=== PATIENT | male | born 1970 | race Caucasian/White ===

== ENCOUNTER 2022-09-04 17:04 | Outpatient (REF) | payer BC, SELFPAY ==
[2022-09-04 21:41] LABS: ALT 35 U/L (16-63); AST 21 U/L (15-37); Albumin 4.3 g/dL (3.4-5.0); Alkaline Phosphatase 82 U/L (46-116); Anion Gap 8.8 mmol/L (3-11); BUN 20 mg/dL (7-18); Bilirubin, Total 0.6 mg/dL (0.2-1.0); CO2 30.2 mmol/L (21.0-32.0); CREATININE 1.4 mg/dL (0.70-1.30); Calculated LDL 212 mg/dL (<100); Chloride 104 mmol/L (98-107); Cholesterol 320 mg/dL (<200); Glucose 104 mg/dL (74-106); HDL Cholesterol 57 mg/dL (40-60); Sodium 143 mmol/L (136-145); Total Protein 7.5 g/dL (6.4-8.2); Triglyceride 259 mg/dL (<150)
[2022-09-04 22:39] LABS: Hemoglobin A1C 6.4 % (<5.7)
--- NOTE | 2022-09-08 16:30 | SKI_PTH ---
PATIENT: Clarence Morris LOC: [facility] U#:[id number] AGE/SX: 52/M ROOM: RE09/04/[address]: Ana Scott : 1970 BED: DIS: 09/04/2022 SPEC #: [id number] RECD: 09/08/22 17:33 STATUS: BOB REQ #: [id number] [place]: 09/08/22 16:[address]: Ana Scott DEPT: Surgical Specimen RECD BY: Milagro Rivas ENTERED: 09/08/22 17:34 SP TYPE: NORA SILVA DR: Unknown,Unknown Tissues: 1 - SKIN BIOPSY(SHAVE/PUNCH) Procedures: SKIN LEVEL 4 Comments: [id number]
== END 2022-09-04 17:05 | disposition home or self-care (01) ==
LOC: NCHCN 17:04
PROVIDERS: Visit Provider Family Medicine
DX: J39.2 Other diseases of pharynx (principal); Z12.11 Encounter for screening for malignant neoplasm of colon
CPT/HCPCS: 80053; 80061; 83036; 88305

== ENCOUNTER 2024-11-24 21:43 | Outpatient (REF) | payer BC, SELFPAY ==
[2024-11-24 22:12] LABS: ALT 40 U/L (16-63); AST 22 U/L (15-37); Albumin 4.2 g/dL (3.4-5.0); Alkaline Phosphatase 71 U/L (46-116); Anion Gap 9.3 mmol/L (3-11); BUN 19 mg/dL (7-18); Bilirubin, Total 0.7 mg/dL (0.2-1.0); CO2 26.7 mmol/L (21.0-32.0); CREATININE 1.1 mg/dL (0.70-1.30); Calcium 9.6 mg/dL (8.5-10.1); Calculated LDL 193 mg/dL (<100); Chloride 100 mmol/L (98-107); Cholesterol 312 mg/dL (<200); Estimated GFR 79.28 (mL/min/1.73m2); Glucose 97 mg/dL (74-106); HDL Cholesterol 56 mg/dL (>or=40); Sodium 136 mmol/L (136-145); Total Protein 7.3 g/dL (6.4-8.2); Triglyceride 318 mg/dL (<150)
== END 2024-11-24 21:44 | disposition home or self-care (01) ==
LOC: NCHCN 21:43
PROVIDERS: PCP Family Medicine; Visit Provider Family Medicine
DX: I10 Essential (primary) hypertension (principal); E78.5 Hyperlipidemia, unspecified
CPT/HCPCS: 80053; 80061